=== PATIENT | male | born 1990 | race African-American/Black ===

== ENCOUNTER 2017-05-29 23:31 | Emergency (ER) | payer MEDICAID, OTHER ==
[~2017-05-29] VITALS: Ht 190.5 cm; Wt 108.0 kg
[2017-05-30 06:48] VITALS: BP 138/78
[2017-05-30] MEDS ORDERED: ACETAMINOPHEN 325MG TABLET PO ONE (07:00)
== END 2017-05-30 07:43 | disposition home or self-care (01) ==
LOC: ER 23:31
DX: Z48.00 Encounter for change or removal of nonsurgical wound dressing (principal); F17.200 Nicotine dependence, unspecified, uncomplicated; Z98.890 Other specified postprocedural states
CPT/HCPCS: 99283; A4217; A4565